=== PATIENT | male | born 1980 ===

== ENCOUNTER 2017-05-24 18:12 | Emergency (ER) | payer SELFPAY ==
[2017-05-24 18:19] VITALS: O2SAT 98
[2017-05-24] MEDS ORDERED: Sodium Chloride 0.9% 1,000 ML IV STA (19:38)
--- NOTE | 2017-05-24 19:46 | ED PDOC ---
HPI: General Adult Time Seen by Provider: 05/24/17 19:13 Chief Complaint (Nursing): Chest Pain History Per: Patient Additional Complaint(s): Pt. states earlier today at 1100 while sitting down at work he developed dizziness and then symptoms worsened when he stood up. Further reports symptoms resolved after drinking juice. He decided to drive but had to pullover as dizziness returned. Pt. states since Monday he's also been experiencing intermittent L sided chest pain that initially starts in his L forearm radiating into the L side of his chest. Of note, this chest pain has been going on for several months but became worse this past Monday. Last year when symptoms began pt. was evaluated by a outside installation machinist in [place] and had a stress test done which was normal. Denies SOB, palpitations, weakness, vomiting , abdominal pain, fever, head injury, headache, recent illness, tinnitus. Past Medical History Reviewed: Historical Data, Nursing Documentation, Vital Signs Vital Signs: Last Vital Signs Temp Pulse 66 05/24/17 19:54 Resp 18 05/24/17 18:17 BP 132/69 05/24/17 18:17 Pulse Ox 98 05/24/17 19:54 - Medical History PMH: No Chronic Diseases, Hypercholesterolemia - Family History Family History: States: No Known Family Hx Denies: CAD - Social History Current smoker - smoking cessation education provided: No Drugs: Denies - Allergies Allergies/Adverse Reactions: Allergies Allergy/AdvReac Type Severity Reaction Status Date / Time No Known Allergies Allergy Verified 05/24/17 18:17 Review of Systems ROS Statement: Except As Marked, All Systems Reviewed And Found Negative Neurological: Positive for: Dizziness Physical Exam - Reviewed Nursing Documentation Reviewed: Yes Vital Signs Reviewed: Yes - Physical Exam Appears: Positive for: Well, Non-toxic, No Acute Distress Head Exam: Positive for: ATRAUMATIC, NORMAL INSPECTION, NORMOCEPHALIC Skin: Positive for: Normal Color, Warm. Negative for: Rash Eye Exam: Positive for: EOMI, Normal appearance, PERRL ENT: Positive for: Normal ENT Inspection Neck: Positive for: Normal, Painless ROM Cardiovascular/Chest: Positive for: Regular Rate, Rhythm Respiratory: Positive for: CNT, Normal Breath Sounds Gastrointestinal/Abdominal: Positive for: Normal Exam, Bowel Sounds, Soft. Negative for: Tenderness Back: Positive for: Normal Inspection Extremity: Positive for: Normal ROM Neurologic/Psych: Positive for: Alert, Oriented - ECG ECG: Positive for: Interpreted By Me ECG Rhythm: Positive for: Sinus Rhythm. Negative for: ST/T Changes Rate: 66 O2 Sat by Pulse Oximetry: 98 - Radiology X-Ray: Interpreted by Me (CXR) - Progress ED Course And Treament: Labs ordered. Antivert 50mg PO given. CXR ordered. EKG ordered. CT head w/o contrast ordered. Pt. placed on monitor. Disposition - Clinical Impression Clinical Impression: Chest pain, Dizziness - Patient ED Disposition Is Patient to be Admitted: Transfer of Care (Signed out to Mirlande BENITEZ pending labs and final disposition.) - Disposition Disposition Time: 20:00 Condition: STABLE Forms: [employer] ([place])
[2017-05-24 20:08] LABS: BASO # 0.1 K/uL (0.0-0.2); BASO % 0.9 % (0.0-2.0); EOS # 0.1 K/uL (0.0-0.7); EOS % 1.8 % (0.0-4.0); HEMOGLOBIN 14.6 g/dL (12.0-18.0); LYMPH % 40.8 % (20.0-40.0); MEAN CELL VOLUME 88.2 fl (80.0-94.0); MEAN CORPUSCULAR HEMOGLOBIN 29.4 pg (27.0-31.0); MEAN CORPUSCULAR HGB CONC 33.3 g/dL (33.0-37.0); MEAN PLATELET VOLUME 10.4 fl (7.2-11.7); MONO # 0.5 K/uL (0.0-0.8); MONO % 7.2 % (0.0-10.0); NEUT # 3.6 K/uL (1.8-7.0); NEUT % 49.3 % (50.0-75.0); NRBC % 0.1 % (0.0-0.0); RBC 4.99 Mil/uL (4.40-5.90); WHITE BLOOD COUNT 7.3 K/uL (4.8-10.8)
[2017-05-24 20:19] LABS: ALB/GLOB RATIO 1.4 (1.0-2.1); ALBUMIN 4.6 g/dL (3.5-5.0); ALT/SGPT 55 U/L (21-72); AST/SGOT 41 U/L (17-59); BLOOD UREA NITROGEN 12 mg/dl (9-20); CALCIUM 9.4 mg/dL (8.4-10.2); GFR AFRICAN-AMERICAN > 60; GFR NON-AFRICAN AMERICAN > 60
--- NOTE | 2017-05-24 20:59 | ED PDOC ---
- Laboratory Results Result Diagrams: 05/24/17 19:45 05/24/17 19:45 - ECG O2 Sat by Pulse Oximetry: 98 - Progress ED Course And Treament: Case endorsed to automobile service writer from Vernell BENITEZ pending labs, CT EXAM: CT Head Without Intravenous Contrast EXAM DATE/TIME: 05/24/2017 CLINICAL HISTORY: Signs and symptoms; Dizziness TECHNIQUE: Axial computed tomography images of the head/brain without intravenous contrast. All CT scans at this facility use one or more dose reduction techniques, viz.: automated exposure control; ma/kV adjustment per patient size (including targeted exams where dose is matched to indication; i.e. head); or iterative reconstruction technique. Coronal and sagittal reformatted images were created and reviewed. COMPARISON: No relevant comparison exam is available at the time of interpretation. FINDINGS: Brain: No acute intracranial hemorrhage. No abnormal extra-axial fluid collection. No herniation. Patent basal cisterns. Preserved [place]-white matter differentiation. No evidence of acute ischemia. No evident intracranial mass. Ventricles: No hydrocephalus. Bones/joints: No destructive calvarial lesion. Soft tissues: No acute findings. Sinuses: The imaged paranasal sinuses are clear. Mastoid air cells: The imaged mastoid air cells are clear. Orbits: No evident acute abnormality of the intraorbital contents. IMPRESSION: No acute findings. On re-eval, patient states dizziness resolved. Patient resting comfortably. Patient educated on findings, discharged with rx Meclizine. Advised follow up PMD 2-3 days Return to ED for worsening/concerning symptoms. Disposition - Clinical Impression Clinical Impression: Chest pain, Dizziness - POA Present On Arrival: None - Disposition [facility]errals: [facility] [[facility]] Disposition: Routine/Home Disposition Time: 21:00 Condition: IMPROVED Prescriptions: Meclizine [Meclizine*] 25 mg PO TID PRN #21 tab PRN Reason: Dizziness Instructions: Chest Pain (ED), Dizziness (ED)
[2017-05-24 21:33] VITALS: BP 125/80; PULSE 75; RESP 16; TEMP 97.9
--- NOTE | 2017-05-25 08:02 | CARD ---
APPROVED REPORT EKG Measurement Heart [id number] MI [id number] <Conclusion> Normal sinus rhythm Nonspecific intraventricular conduction delay Borderline ECG
--- NOTE | 2017-05-25 08:10 | CT ---
PROCEDURE: CT HEAD WITHOUT CONTRAST. HISTORY: dizziness COMPARISON: None available. TECHNIQUE: Axial computed tomography images were obtained through the head/brain without intravenous contrast. Radiation dose: Total exam DLP = 857.9 mGy-cm. This CT exam was performed using one or more of the following dose reduction techniques: Automated exposure control, adjustment of the mA and/or kV according to patient size, and/or use of iterative reconstruction technique. FINDINGS: HEMORRHAGE: No intracranial hemorrhage. BRAIN: No mass effect or edema. No atrophy or chronic microvascular ischemic changes. VENTRICLES: Unremarkable. No hydrocephalus. CALVARIUM: Unremarkable. PARANASAL SINUSES: Unremarkable as visualized. No significant inflammatory changes. MASTOID AIR CELLS: Unremarkable as visualized. No inflammatory changes. OTHER FINDINGS: None. IMPRESSION: No evidence of acute intracranial hemorrhage. Preliminary report was submitted by [facility].
--- NOTE | 2017-05-25 10:20 | RAD ---
HISTORY: chest pain, dizziness COMPARISON: Comparison is made to 07/15/2011 TECHNIQUE: Chest PA and lateral FINDINGS: LUNGS: No active pulmonary disease. PLEURA: No significant pleural effusion identified. No pneumothorax apparent. CARDIOVASCULAR: Normal. OSSEOUS STRUCTURES: No significant abnormalities. VISUALIZED UPPER ABDOMEN: Normal. OTHER FINDINGS: None. IMPRESSION: No active disease.
== END 2017-05-24 21:45 | disposition home or self-care (01) ==
LOC: H.ER 18:12
DX: R07.89 Other chest pain (principal); R42 Dizziness and giddiness
CPT/HCPCS: 70450; 71020; 80053; 82948; 84484; 85025; 93005; 96361; 96374; 99285; J2405; J7040